=== PATIENT | male | born 1985 | race Caucasian/White ===

== ENCOUNTER → 2021-02-07 15:00 | Outpatient (CLI) | payer OTHER, SELFPAY ==
--- NOTE | ~2021-02-07 | XR_ITS ---
EXAMINATION: XR hand RT min 3V EXAM DATE: 02/07/2021 15:23 INDICATION: No known recent injury provided at this time. Pain of the right hand. TECHNIQUE: Right hand frontal, lateral and oblique projections obtained and reviewed. There is no pr ior study for comparison. FINDINGS: Acute closed posttraumatic avulsion fracture along the medial side of the right 4th proxima l phalanx at the metacarpophalangeal joint. Fracture fragment has rotated partially but is still on t he expected distal aspect of the joint. No other suspicious findings. IMPRESSION: Right 4th proximal phalangeal base avulsion fracture medially. Reviewed, dictated and finalized at location A.
== END ==
PROVIDERS: PCP Nurse Practitioner Family; Visit Provider Nurse Practitioner Family
DX: S62.614A Displaced fracture of proximal phalanx of right ring finger, initial encounter for closed fracture (principal); X58.XXXA Exposure to other specified factors, initial encounter
CPT/HCPCS: 73130